=== PATIENT | male | born 1990 | race Caucasian/White ===

== ENCOUNTER 2020-06-14 09:42 | Emergency (ER) | payer OTHER ==
[~2020-06-14] VITALS: Ht 190.5 cm; Wt 86.0 kg
[2020-06-14 10:05] LABS: ABSOLUTE BASOPHILS 0.1 thou/uL (0.0-0.2); ABSOLUTE EOSINOPHILS 0.2 thou/uL (0.0-0.7); ABSOLUTE MONOCYTES 0.4 thou/uL (0.0-1.2); ABSOLUTE NEUTROPHILS 3.7 thou/uL (1.6-8.1); BASOPHILS 1.2 %; EOSINOPHILS 2.4 %; HEMATOCRIT 38.9 % (42.0-52.0); HEMOGLOBIN 13.1 gm/dL (14.0-18.0); LYMPHOCYTES 31.4 %; MCH 27.7 pg (26.0-34.0); MCHC 33.6 g/dL (28.0-37.0); MCV 82.5 fL (80.0-100.0); MONOCYTES 6.1 %; MPV 8.8 fl. (7.2-11.1); NUCLEATED RBCS 0 /100WBC; PLATELET COUNT* 282 thou/uL (150-400); POLYS 58.9 %; RBC 4.72 mil/uL (4.50-6.00); RDW-CV 15.4 % (10.5-14.5); WBC 6.3 thou/uL (4.0-11.0)
[2020-06-14 10:25] LABS: ALBUMIN 3.8 g/dL (3.4-5.0); CREATININE 0.8 mg/dL (0.6-1.3); POTASSIUM 4.1 mmol/L (3.5-5.1); TOTAL BILIRUBIN 0.5 mg/dL (<0.1-1.0); TOTAL PROTEIN 8.1 g/dL (6.4-8.2)
[2020-06-14 10:33] LABS: CALCIUM 9.1 mg/dL (8.5-10.1)
[2020-06-14 11:15] VITALS: BP 105/75
[2020-06-14 12:22] LABS: AMP/METHAMP POSITIVE (Negative); BARBITURATES Negative (Negative); BENZODIAZEPINES POSITIVE (Negative); COCAINE Negative (Negative); METHADONE Negative (Negative); OPIATES POSITIVE (Negative); PCP Negative (Negative); THC POSITIVE (Negative)
--- NOTE | 2020-06-14 16:05 | EKG ---
[place] [address] ELECTROCARDIOGRAM REPORT Name: KALYAARTEMIO Room: [facility]#: [id number] Admission: 06/14/20 Attend Phys: Discharge: 06/14/20 Date of : [birth year] Date of Service: 06/14/2046 Report #: [id number] THIS REPORT FOR: //name// ED Test Date: 2020-06-14 Test Time: 09:46:22 Pat Name: ARTEMIO GARZA Department: Room: Gender: Corporate Staff Accountant: [facility] [place] 1990 Requested By: Steve Springer Order Number: [id number] MD: Tripp Santiago Measurements Intervals [place] Rate: 72 P: 53 [place]: 148 QRS: 72 QRSD: 87 T: 61 QT: 391 QTc: 428 Interpretive Statements Sinus rhythm No previous ECG available for comparison Electronically Signed On 06-14-2020 16:05:25 CDT by Tripp Santiago [email or web address] <ELECTRONICALLY SIGNED> By: Tripp Santiago MD, [facility] 06/14/20 1605 5 Tripp Santiago MD, FACC /EPI
== END 2020-06-14 11:20 | disposition home or self-care (01) ==
LOC: M.ERS 09:42
PROVIDERS: Family Medicine
DX: F19.10 Other psychoactive substance abuse, uncomplicated (principal); F17.210 Nicotine dependence, cigarettes, uncomplicated